=== PATIENT | female | born 1950 | race Caucasian/White ===

== ENCOUNTER 2024-07-06 18:48 | Emergency (ER) | payer MEDICARE, BC, SELFPAY ==
[2024-07-06 18:51] VITALS: BP 145/65; PULSE 58; RESP 18; TEMP 36.1; O2SAT 100; BMI 25.7
[2024-07-06] MEDS: lidocaine HCL 2 % JELLY (TOP) STERILE 6 ML TOPICAL (19:30)
[2024-07-06] MEDS: LORazepam 2 MG/ML inj 0.5 MG IVP (19:30)
--- NOTE | 2024-07-06 20:04 | ED.GENADULT ---
HPI - General Adult General Chief complaint: Constipation Stated complaint: constipation Time Seen by Provider: 07/06/24 18:57 Source: patient Mode of arrival: ambulatory Limitations: no limitations History of Present Illness HPI narrative: 74-year-old female coming in today complaining of rectal pressure. Patient states that this problem has been going on for over a month but today has been overwhelming for her. She feels a constant need to have a bowel movement. She states that she started taking MiraLax, did an enema today and did have a bowel movement but the sensation to continue to have a bowel movement and the rectal pressure did not ease up. She states that she does have a history of MS and brought this up with her neurologist, nothing really was done about it. She feels that the problem is now getting worse. She denies fevers, chills, nausea or vomiting. She denies changes in her appetite. She denies any blood in her stool. She denies any urinary symptoms that are new or concerning. She denies any abdominal pain. She denies any rectal pain. Related Data Previous Rx's ?Medication ?Instructions ?Recorded lidocaine 2 %-hydrocortisone 2 % 1 applic [place] BID PRN #1 ea 07/06/24 (7 gram) rectal kit cream and wipes Allergies Allergy/AdvReac Type Severity Reaction Status Date / Time clindamycin Allergy Intermediate Verified 07/06/24 18:54 shellfish derived Allergy Intermediate Verified 07/06/24 18:55 Review of Systems Status of ROS: Reports: 10 or more systems reviewed and unremarkable except as noted in History and below Exam Narrative: Exam Narrative: Well-nourished well-developed patient, clearly uncomfortable. Alert and oriented. Answers questions appropriately. Mood and affect are appropriate. Thoughts are goal oriented and rational. No tangential or magical thinking noted. Patient speaks in full sentences without needing to catch her breath. HEENT: Normocephalic atraumatic. Pupils are equally round reactive to light. Extraocular muscles are intact. Conjunctivae are moist without any icterus noted. Moist mucous membranes. Cardiovascular: Heart is regular rate and rhythm. Lungs: Clear to auscultation bilaterally. Abdomen: Soft and nontender nondistended with normal bowel sounds. No guarding or rebound. Skin: Well perfused without any obvious rashes. Rectal exam: Patient has large hemorrhoids circumferentially around the anus. There is no evidence of thrombosed hemorrhoids. There is no tenderness, erythema or fluctuance noted to suggest and abscess she or an infection. She has normal rectal tone. There is no stool in the rectal vault. No masses are appreciated. Const: Vital Signs, click to edit/add: Vital Signs - 24 hr 07/06/24 18:51 Temperature 97.0 F L Pulse Rate [Pulse Oximeter] 58 L Respiratory Rate 18 Blood Pressure [Le ft Upper Arm] 145/65 H Pulse Oximetry 100 Oxygen Delivery Me thod Room Air Course Course ED Course: While in the ED patient received 0.5 mg of IV Ativan and Uro jet rectally. She stated that this significantly reduce the pressure she was feeling and she was much more comfortable. Vital Signs Vital signs: Initial Vital Signs Temperature 97.0 F L 07/06/24 18:51 Temperature Source Temporal Artery Scan 07/06/24 18:51 Pulse Rate 58 L 07/06/24 18:51 Pulse Rhythm Regular 07/06/24 18:51 Respiratory Rate 18 07/06/24 18:51 Blood Pressure 145/65 H 07/06/24 18:51 Blood Pressure Mean 91 07/06/24 18:51 Blood Pressure Position Sitting 07/06/24 18:51 Pulse Oximetry 100 07/06/24 18:51 Oxygen Delivery Method Room Air 07/06/24 18:51 Vital Signs Temperature 97.0 F L 07/06/24 18:51 Pulse Rate 58 L 07/06/24 18:51 Respiratory Rate 18 07/06/24 18:51 Blood Pressure 145/65 H 07/06/24 18:51 Pulse Oximetry 100 07/06/24 18:51 Oxygen Delivery Method Room Air 07/06/24 18:51 Temperature 97.0 F L 07/06/24 18:51 Pulse Rate 58 L 07/06/24 18:51 Respiratory Rate 18 07/06/24 18:51 Blood Pressure 145/65 H 07/06/24 18:51 Pulse Oximetry 100 07/06/24 18:51 Oxygen Delivery Method Room Air 07/06/24 18:51 Medical Decision Making MDM Narrative Medical decision making narrative: 74-year-old female with tenesmus. I do encourage the patient to follow-up with her neurologist to discuss this further. In the meantime, will send her home with oral tablets of Ativan and hydrocortisone rectal cream. Discharge Plan Discharge Clinical Impression: Rectal tenesmus, External hemorrhoids Patient Disposition: Home, Self-Care Condition: Stable Additional Instructions: You will be sent home today with lorazepam which is in medication to relax your muscles. This medication can make you sleepy and drowsy so be aware when you take this. This is the same medication you received through your IV in the emergency room. You will also be sent home with hydrocortisone and lidocaine rectal cream: Apply sparingly as needed up to 2 times per day. This is a local anti-inflammatory and analgesic cream. I do recommend that you follow-up with your neurologist or your primary care provider to discuss these symptoms further as there are other medications that you can try taking. Lorazepam sent to [facility]. Prescriptions: New lidocaine HCl-hydrocortison ac 2 %-2 % (7 gram) kit 1 applic [place] BID PRNQty: 1 1RF Follow Up/Referrals: Javi Velasco MD [Primary Care Provider] - Stand Alone Forms: [employer] Mobile Info Instructions
== END 2024-07-06 20:20 | disposition home or self-care (01) ==
PROVIDERS: Emergency Provider Family Medicine; PCP Internal Medicine
DX: R19.8 Other specified symptoms and signs involving the digestive system and abdomen (principal); K64.4 Residual hemorrhoidal skin tags
CPT/HCPCS: 96374; 99284; J2060